=== PATIENT | male | born 1970 | race Caucasian/White ===

== ENCOUNTER 2020-07-19 09:06 | Emergency (ER) | payer MEDICAID, SELFPAY ==
[2020-07-19 09:08] VITALS: BP 161/113; PULSE 106; RESP 17; TEMP 36.4; O2SAT 96; BMI 29.1
--- NOTE | 2020-07-19 09:28 | ED.VIS.GEN ---
History of Present Illness Chief Complaint: Ear Problem Informant: Patient Onset: Weeks - 1-2 Context: Gradual Onset Timing: Continuous Quality: decreased hearing, occ pain Location: right ear Current Severity: Moderate - w/r/t trouble hearing Maximum Severity: Moderate Worsened by: nothing Relieved by: if he gets his ear to pop but can't now Associated Symptoms: no discharge. no URI sx or seasonal allergies. Narrative: States he has had wax buildup in the past and wears Bluetooth headphones commonly. Both ears have been affected but this is mainly an issue on the right now. He states he can hear out of the left ear okay. Denies any fevers or chills. He has a chronic smoker's cough that is unchanged, no fevers or chills or other acute symptoms. Past Medical History - Allergies and Home Meds Allergies/Adverse Reactions: Allergies iodine Allergy (Verified 07/19/20 09:07) Hives shellfish derived Allergy (Verified 07/19/20 09:07) Hives NARCOTICS Adverse Reaction (Uncoded 07/19/20 09:07) ADDICTION Primary Care Physician: Care Physician,No Primary [Primary Care Provider] - Past Medical History: None Smoking Status: Current every day smoker Review of Systems General: Denies: Chills, Fever, Sweats Eyes: Denies: Visual changes - bilaterally, Diplopia ENT: Reports: Right ear pain, - - Trouble hearing right ear. Denies: Rhinorrhea, Sore throat Respiratory: Reports: Cough. Denies: Dyspnea Gastrointestinal: Denies: Abdominal pain, Nausea, Vomiting, Diarrhea Genitourinary: Denies: Dysuria, Hematuria Musculoskeletal: Denies: Myalgias, Neck pain, Back pain, Swelling Skin: Denies: Rash, Wounds Neurological: Denies: Headache, Weakness, Numbness Physical Exam Vital Signs/Narrative: Vital Signs Temp Pulse Resp BP Pulse Ox 07/19/20 09:08 97.5 F L 106 H 17 161/113 H 96 General: Well nourished, Well developed, No Acute Distress Head: Normocephalic, Atraumatic Eyes: Perrl, EOMI ENT: Moist mucous membranes, No rhinorrhea, TM's clear - Possibly serous effusion on the right., - - Minimal cerumen bilaterally. EAC normal bilaterally otherwise without pain on manipulation of pinna or tragus. No erythema tympanic membranes. Normal light reflexes. No TM perforations. No mastoid tenderness/erythema/swelling. Neck: Supple, Nontender, No lymphadenopathy Respiratory: No distress Skin: Normal color, No rash, No Trauma Neurological: Alert, Oriented x3, Cranial nerves II-XII grossly intact, Normal Strength, Normal Sensation, Normal Gait Psychological: Normal affect, Normal Mood Diagnostic/Tx/Re-eval - Medical Decision Making Consistent with eustachian tube dysfunction that I would advise inhaled steroids for and decongestants as needed. We discussed this. ENT follow-up if these measures do not work. No indication for antibiotics at this time. ED Disposition - Plan for ED Patient: Disposition: Home or Assisted Living Diagnosis: Acute dysfunction of eustachian tube, Acute effusion of right ear Instructions: ED SEROUS OTITIS MEDIA Adult Prescriptions: Fluticasone 0.05% [Flonase Nasal [place]] 2 spray NASAL DAILY #1 nasal.sry Transmission Status: Pending to [facility] [facility] Referrals: Alexis Morris MD [STAFF PHYSICIAN] - 1 Week if not improving
[2020-07-19 09:53] VITALS: PULSE 94; RESP 18
--- NOTE | 2020-07-19 09:57 | ED.RN ---
THIS NURSE REVIEWED D/C INSTRUCTIONS WITH PT. PT VERBALIZED UNDERSTANDING OF INSTRUCTIONS. PT DENIES FURTHER NEEDS OR QUESTIONS AT THIS TIME. PT AMBULATES FROM ON OWN WITHOUT ASSISTANCE FROM STAFF
== END 2020-07-19 09:58 | disposition home or self-care (01) ==
LOC: ED 09:44
PROVIDERS: Emergency Provider Emergency Medicine
DX: H69.81 Other specified disorders of Eustachian tube, right ear (principal); H65.91 Unspecified nonsuppurative otitis media, right ear; F17.200 Nicotine dependence, unspecified, uncomplicated; Z88.5 Allergy status to narcotic agent
CPT/HCPCS: 99282